=== PATIENT | male | born 1975 | race Caucasian/White ===

== ENCOUNTER 2017-01-29 11:18 | Inpatient (IN) | payer MEDICAID ==
[~2017-01-29] VITALS: Ht 170.2 cm; Wt 65.0 kg
[2017-01-29 02:50] VITALS: BP 134/70
[2017-01-29] MEDS ORDERED: METH5TAB2 PO (11:47)
[2017-01-29] MEDS ORDERED: SODIUM CHLORIDE 0.9% 10ML VIAL ONE (13:46)
[2017-01-29] MEDS ORDERED: IOHEXOL-300 100 ML BOTTLE ONE (13:46)
[2017-01-29] MEDS ORDERED: MORPHINE SULFATE 4 MG/ML CPJ (NOT FOR IM USE) IV ONE (19:00)
[2017-01-29] MEDS ORDERED: SODIUM CHLORIDE 0.9% 1,000 ML IV ONE (19:00)
[2017-01-29] MEDS ORDERED: ONDANSETRON HCL 4MG/2ML VIAL IV ONE (19:00)
[2017-01-29 19:35] LABS: CARBON DIOXIDE 30 mEq/L (21-32); CHLORIDE 100 mEq/L (98-107)
[2017-01-29 20:00] LABS: CLARITY URINE CLOUDY (CLEAR); COLOR URINE DARK YELLOW (YELLOW); GLUCOSE URINE NEGATIVE (NEGATIVE); KETONES URINE TRACE (NEGATIVE); LEUKOCYTE ESTERASE URINE 1+ (NEGATIVE); NITRITE URINE POSITIVE (NEGATIVE); OCCULT BLOOD URINE NEGATIVE (NEGATIVE); PROTEIN URINE TRACE (NEGATIVE)
[2017-01-29 20:11] LABS: BASOPHILS % 0.6 % (0.0-2.0); EOSINOPHILS % 2.7 % (0.0-5.0); HEMATOCRIT. 38.2 % (42.0-52.0); HEMOGLOBIN. 13.4 g/dL (14.0-18.0); LYMPHOCYTES % 19.9 % (20.0-50.0); MEAN CORPUSCULAR HEMOGLOBIN 31.2 pg (28.0-32.0); MEAN CORPUSCULAR VOLUME 88.8 fL (80.0-94.0); MEAN PLATELET VOLUME 8.6 fl (7.4-10.4); MONOCYTES % 9.2 % (2.0-8.0); NEUTROPHILS % 67.6 % (40.0-76.0)
[2017-01-29 20:24] LABS: PLATELET 47 x1000/uL (130-400)
[2017-01-29] MEDS ORDERED: CEFTRIAXONE 1 G PREMIX 50 ML IV ONE (22:30)
[2017-01-30] MEDS ORDERED: ONDANSETRON HCL 4MG/2ML VIAL IV ONE (00:30)
[2017-01-30] MEDS ORDERED: MORPHINE SULFATE 4 MG/ML CPJ (NOT FOR IM USE) IV ONE (00:30)
[2017-01-30 03:10] VITALS: BP 134/70
[2017-01-30 08:00] VITALS: BP 140/83
[2017-01-30] MEDS ORDERED: METHADONE HCL 10MG TABLET PO SCH (09:00)
[2017-01-30] MEDS ORDERED: IPRATROPIUM/ALBUTEROL 0.5-3(2.5)MG/3ML NEB INH PRN (11:00)
[2017-01-30] MEDS ORDERED: HYDROCODONE/ACETAMINOPHEN 5/325MG TABLET PO PRN (11:00)
[2017-01-30] MEDS ORDERED: ROCEPHIN IVPB XX SCH (11:00)
[2017-01-30] MEDS ORDERED: DIPHENHYDRAMINE 50MG/ML VIAL IV PRN (11:00)
[2017-01-30] MEDS ORDERED: ONDANSETRON HCL 4MG/2ML VIAL IV PRN (11:00)
[2017-01-30] MEDS ORDERED: CLONIDINE 0.1MG TABLET PO PRN (11:00)
[2017-01-30 12:00] VITALS: BP 122/72
[2017-01-30] MEDS ORDERED: LEVOFLOXACIN 500MG TABLET PO NR (15:45)
[2017-01-30 16:00] VITALS: BP 108/68
[2017-01-30 17:58] VITALS: BP 108/68
[2017-01-30] MEDS ORDERED: CEFTRIAXONE 1 G PREMIX 50 ML IV SCH (21:00)
[2017-02-01 11:41] LABS: PLATELET ESTIMATE MARKEDLY DECREASED
== END 2017-01-30 18:50 | disposition home or self-care (01) | DRG 463 ==
LOC: ER 11:18 → 6EST 22:26 → ENRESERV 01-30 01:56
PROVIDERS: ADMIT Internal Medicine; ATTEND Internal Medicine
DX: N39.0 Urinary tract infection, site not specified (principal); D69.59 Other secondary thrombocytopenia; B19.20 Unspecified viral hepatitis C without hepatic coma; D64.9 Anemia, unspecified; R74.0 Nonspecific elevation of levels of transaminase and lactic acid dehydrogenase [LDH]; Z79.899 Other long term (current) drug therapy
CPT/HCPCS: 36415; 74178; 80053; 81001; 85025; 87040; 87086; A4216; J0696; J2270; J2405; J7030; Q9967